=== PATIENT | female | born 1965 | race Caucasian/White ===

== ENCOUNTER 2016-07-16 03:31 | Emergency (ER) | payer MEDICAID ==
[~2016-07-16] VITALS: Ht 157.5 cm; Wt 63.2 kg
[2016-07-16 03:34] VITALS: BP 147/88
== END 2016-07-16 04:58 | disposition home or self-care (01) ==
LOC: ED 04:47
DX: M79.661 Pain in right lower leg (principal)
CPT/HCPCS: 99284